=== PATIENT | male | born 1995 | race Caucasian/White ===

== ENCOUNTER 2016-08-11 12:19 | Emergency (ER) | payer OTHER ==
[~2016-08-11] VITALS: Ht 180.3 cm; Wt 72.3 kg
[2016-08-11 13:56] VITALS: BP 134/75
== END 2016-08-11 15:25 | disposition home or self-care (01) ==
LOC: ED 12:19
DX: J45.909 Unspecified asthma, uncomplicated (principal); R07.89 Other chest pain; F12.10 Cannabis abuse, uncomplicated; F17.210 Nicotine dependence, cigarettes, uncomplicated
CPT/HCPCS: 99406

== ENCOUNTER 2018-08-19 22:02 | Emergency (ER) | payer SELFPAY ==
[~2018-08-19] VITALS: Ht 182.9 cm; Wt 71.2 kg
[2018-08-19 22:20] VITALS: Ht 182.9 cm; Wt 71.2 kg
[2018-08-20 00:22] VITALS: BP 103/70
== END 2018-08-20 00:26 | disposition home or self-care (01) ==
LOC: ED 22:02
DX: R07.89 Other chest pain (principal)